=== PATIENT | male | born 1960 | race Caucasian/White ===

== ENCOUNTER 2020-10-30 20:12 | Emergency (ER) | payer OTHER ==
[~2020-10-30] VITALS: Ht 177.8 cm; Wt 121.5 kg
[2020-10-30 20:27] VITALS: BP 140/87
--- NOTE | 2020-10-30 20:36 | NUR ---
CC OF BLOODY NOSE FROM LEFT NARE. PT STATES HE GOT A BLOODY NOSE YESTERDAY, IT STOPPED, THEN TODAY WHEN BEDNING OVER IT STARTED AGAIN AND HASN'T STOPPED. DENIES BLOOD THINNERS. STATES SOME CLOTS HAVE COME OUT. DENIESDIZZYNESS AND FEELING LIGHTHEADED. STARTED AT 1845. AT BEDSIDE. CLAMP APPLIED.
[2020-10-30] MEDS ORDERED: OXYMETAZOLINE NASAL SPRAY 0.05%,30ML ONE (20:42)
[2020-10-30] MEDS ORDERED: TRANEXAMIC ACID 100 MG/ML, 10ML ONE (20:50)
[2020-10-30] MEDS ORDERED: OXYMETAZOLINE NASAL SPRAY 0.05%,30ML NAS ONE (21:00)
[2020-10-30] MEDS ORDERED: TRANEXAMIC ACID 100 MG/ML, 10ML TP ONE (21:30)
== END 2020-10-30 22:03 | disposition home or self-care (01) ==
LOC: ED 21:44
DX: R04.0 Epistaxis (principal)
CPT/HCPCS: 30901; 99282; 99284